=== PATIENT | female | born 1940 | race Caucasian/White ===

== ENCOUNTER 2017-02-18 04:48 | Day surgery (SDC) | payer MEDICARE, BC ==
[~2017-02-18 04:48] MED LIST: ACET500CAP PO; ASAB PO; LEVOTHYROXIN88 MCG PO; LOTENSIN HCT1 TA3 PO; NEUR600 PO
== END 2017-02-18 23:59 | disposition home or self-care (01) ==
LOC: SDC 04:48
PROVIDERS: Orthopaedic Surgery
PROC: 3E0S3BZ Introduction of Anesthetic Agent into Epidural Space, Percutaneous Approach (ICD-10-PCS; 2017-02-18)
PROC: 3E0S33Z Introduction of Anti-inflammatory into Epidural Space, Percutaneous Approach (ICD-10-PCS; principal; 2017-02-18 08:00)
DX: M54.16 Radiculopathy, lumbar region (principal); E03.9 Hypothyroidism, unspecified; Z79.82 Long term (current) use of aspirin; Z79.899 Other long term (current) drug therapy; Z98.890 Other specified postprocedural states; Z90.89 Acquired absence of other organs; Z90.49 Acquired absence of other specified parts of digestive tract
CPT/HCPCS: J1040; J2250; J3010; Q9967